=== PATIENT | female | born 1980 | race Caucasian/White ===

== ENCOUNTER 2018-03-18 18:13 | Emergency (ER) | payer OTHER ==
[2018-03-18 18:13] VITALS: BMI 20.9
[2018-03-18 18:22] VITALS: RESP 18; O2SAT 99
--- NOTE | 2018-03-18 18:50 | ED PDOC ---
HPI: Female Pain Time Seen by Provider: 03/18/18 18:23 Chief Complaint (Nursing): Female Genitourinary Chief Complaint (Provider): Female genitourinary History Per: Patient Onset/Duration Of Symptoms: Days (x2) Current Symptoms Are (Timing): Still Present Associated Symptoms: denies: Fever, Chills, Nausea, Vomiting, Diarrhea Additional Complaint(s): 37 year old female presents to the ED for evaluation of suprapubic pressure, dysuria, and urinary frequency for 2 days. Patient has a history of UTI with similar symptoms in the past. No medications taken [employer]. Reports intermittent lower back pain as well. Denies fever, chills, flank pain, nausea, vomiting, or diarrhea. LMP is current. 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 - Family History Family History: States: Unknown Family Hx - Living Arrangements Living Arrangements: With Family - Home Medications Home Medications: Ambulatory Orders Medication Instructions Recorded Docusate Sodium [Colace] 100 mg PO DAILY 10/15/14 Albuterol 0.042% [Albuterol 0.042% 3 ml IH Q4 PRN #20 milagros 08/30/15 Inhal Milagros (1.25mg/3ml) UD] Albuterol HFA [Ventolin HFA 90 1 - 2 puff IH Q4 PRN #1 inhaler 08/30/15 mcg/actuation (8 g)] Azithromycin [Zithromax] 250 mg PO DAILY #6 tab 08/30/15 Ibuprofen 600 mg PO Q6 PRN #20 tablet 08/30/15 Prednisone 50 mg PO DAILY #4 tab 08/30/15 Naproxen 500 mg PO BID PRN #20 tab 03/18/18 Nitrofurantoin Macrocrystals 100 mg PO BID #14 cap 03/18/18 [Macrobid] Phenazopyridine HCl [Pyridium] 200 mg PO BID PRN #4 tablet 03/18/18 - Allergies Allergies/Adverse Reactions: Allergies Allergy/AdvReac Type Severity Reaction Status Date / Time No Known Allergies Allergy Verified 07/14/14 02:26 Review of Systems ROS Statement: Except As Marked, All Systems Reviewed And Found Negative Constitutional: Negative for: Fever, Chills Gastrointestinal: Positive for: Other (Suprapubic pressure). Negative for: Nausea, Vomiting, Abdominal Pain (or flank pain), Diarrhea Genitourinary Female: Positive for: Dysuria, Frequency Physical Exam - Reviewed Nursing Documentation Reviewed: Yes Vital Signs Reviewed: Yes - Physical Exam Comments: GENERAL APPEARANCE: Patient is awake, alert, oriented x 3, in no acute distress. Resting comfortably. SKIN: Warm, dry; (-) cyanosis. ENMT: Mucous membranes moist. Airway patent: (-) stridor. NECK: Supple, FROM CHEST AND RESPIRATORY: (-) wheezing; (-) rales, (-) rhonchi, (-) rub; breath sounds equal bilaterally. Respirations even and nonlabored. HEART AND CARDIOVASCULAR: (-) irregularity ABDOMEN AND GI: Soft; (+) mild suprapubic tenderness. (-) CVA tenderness (-) distention (-) guarding. EXTREMITIES: (-) deformity NEURO AND PSYCH: Mental status as above; (-) focal findings. Gait: Steady. Speech: clear. (-) focal findings - Laboratory Results Urine POC: Negative - ECG O2 Sat by Pulse Oximetry: 99 (RA) Pulse Ox Interpretation: Normal Medical Decision Making Medical Decision Making: Initial Impression: Dysuria and urinary frequency, probable UTI Initial Plan: -- test --Pyridium 200mg PO --Urine culture --Urinalysis 1945 U/A (+) UTI. Macrobid 100mg PO ordered. Upreg: (-) 1999 On re-evaluation, patient reports improvement of symptoms. On exam, patient remains AAOx3, in no acute distress. Lungs clear to auscultation, cardiac RRR, repeat neuro exam shows no focal findings. Vitals stable. Lab/Diagnostic results d/w the patient in great detail. Diagnosis of dysuria, UTI d/w the patient. Based on history, exam and diagnostic results, plan will be for outpatient follow up. Patient instructed to follow-up with pmd / referral provided / the clinic in 1- 2 days without fail. Advised to take medication as prescribed. Return to the emergency room at any time for any new or worsening symptoms. Patient states she fully agrees with and understands discharge instructions. States that she agrees with the plan and disposition. Verbalized and repeated discharge instructions and plan. I have given the patient opportunity to ask any additional questions. Scribe Attestation: Documented by Dar Cuello acting as a scribe for Rosa BERMAN. Provider Scribe Attestation: All medical record entries made by the Scribe were at my direction and personally dictated by me. I have reviewed the chart and agree that the record accurately reflects my personal performance of the history, physical exam, medical decision making, and the department course for this patient. I have also personally directed, reviewed, and agree with the discharge instructions and disposition. Disposition - Clinical Impression Clinical Impression: Urinary tract infection, Dysuria - Patient ED Disposition Is Patient to be Admitted: No Counseled Patient/Family Regarding: Studies Performed, Diagnosis, Need For Followup, Rx Given - Disposition Referrals: [facility] [Outside] Nathaniel Wheatley Jr., MD [Staff Provider] - Disposition: Routine/Home Disposition Time: 20:00 Condition: STABLE Additional Instructions: The emergency medical care you received today was directed at your acute symptoms. If you were prescribed any medication, please fill it and take as directed. It may take several days for your symptoms to resolve. Return to the Emergency Department if your symptoms worsen, do not improve, or if you have any other problems. Please contact your doctor in 2 days for re-evaluation and follow up / or call one of the physicians/clinics you have been referred to that are listed on the Patient Visit Information form that is included in your discharge packet. Bring any paperwork you were given at discharge with you along with any medications you are taking to your follow up visit. Our treatment cannot replace ongoing medical care by a primary care provider (PCP) outside of the emergency department. Prescriptions: Naproxen 500 mg PO BID PRN #20 tab PRN Reason: Pain, Moderate (4-7) Nitrofurantoin Macrocrystals [Macrobid] 100 mg PO BID #14 cap Phenazopyridine HCl [Pyridium] 200 mg PO BID PRN #4 tablet PRN Reason: urinary discomfort Instructions: Urinary Tract Infection, Adult (DC), Dysuria, Adult (DC) Forms: [facility] (Y[place]i) Print Language: SPANISH - POA Present On Arrival: None Results - Lab Results Lab Results: 03/18/18 19:00 Urine Color Yellow Urine Clarity Cloudy Urine pH 6.0 Ur Specific [place] 1.023 Urine Protein 30 Urine Glucose (UA) Neg Urine Ketones Negative Urine Blood Large Urine Nitrate Negative Urine Bilirubin Negative Urine Urobilinogen 0.2-1.0 Ur Leukocyte Esterase Mod Urine RBC (Auto) 33 H Urine Microscopic WBC 62 H Ur Squamous Epith Cells 8 H Urine Bacteria Rare
[2018-03-18 19:22] LABS: SQUAMOUS EPITHIAL 8 /hpf (0-5); URINE BACTERIA RARE (<OCC); URINE BILIRUBIN NEGATIVE (NEGATIVE); URINE BLOOD LARGE (NEGATIVE); URINE CLARITY CLOUDY (Clear); URINE COLOR YELLOW (YELLOW); URINE GLUCOSE (UA) NEG (Normal); URINE LEUKOCYTE ESTERASE MOD Leu/uL (Negative); URINE PROTEIN 30 mg/dL (NEGATIVE); URINE UROBILINOGEN 0.2-1.0 mg/dL (0.2-1.0)
[2018-03-18 20:30] VITALS: BP 122/78; PULSE 89; TEMP 98
== END 2018-03-18 20:28 | disposition home or self-care (01) ==
LOC: H.ER 18:13
DX: N39.0 Urinary tract infection, site not specified (principal); R30.0 Dysuria; J45.909 Unspecified asthma, uncomplicated

== ENCOUNTER 2018-04-04 15:03 | Emergency (ER) | payer OTHER ==
[2018-04-04 15:04] VITALS: BMI 20.9
[2018-04-04 15:46] VITALS: BP 108/66; PULSE 68; RESP 16; TEMP 98.2; O2SAT 100
--- NOTE | 2018-04-04 16:14 | ED PDOC ---
HPI: Female Pain Time Seen by Provider: 04/04/18 15:36 Chief Complaint (Nursing): Female Genitourinary Chief Complaint (Provider): Suprapubic Pressure + Urinary Frequency History Per: Patient History/Exam Limitations: no limitations Onset/Duration Of Symptoms: Days (x1) Current Symptoms Are (Timing): Still Present Additional Complaint(s): 37 year old female presents to the ED for evaluation of suprapubic pressure and urinary frequency since last night. Pt reports she was seen three weeks ago for a UTI and treated with macrobid; her urine culture showed sensitivity to macrobid and pt reported her sx fully improved then. Otherwise, denies nausea, vomiting, fever, back pain, vaginal discharge, and pain with sex. Admits to having ever only had one long-term current sexual partner. PMD: none provided Past Medical History Reviewed: Historical Data, Nursing Documentation, Vital Signs Vital Signs: Last Vital Signs Temp 98.2 F 04/04/18 15:44 Pulse 68 04/04/18 15:44 Resp 16 04/04/18 15:44 BP 108/66 04/04/18 15:44 Pulse Ox 100 04/04/18 15:44 - Medical History PMH: Asthma (as child/ teenager) Denies: Chronic Kidney Disease - Surgical History Surgical History: No Surg Hx - Family History Family History: States: Unknown Family Hx - Living Arrangements Living Arrangements: With Family - Home Medications Home Medications: Ambulatory Orders Medication Instructions Recorded Docusate Sodium [Colace] 100 mg PO DAILY 10/15/14 Albuterol 0.042% [Albuterol 0.042% 3 ml IH Q4 PRN #20 milagros 08/30/15 Inhal Milagros (1.25mg/3ml) UD] RX: Albuterol HFA [Ventolin HFA 90 1 - 2 puff IH Q4 PRN #1 inhaler 08/30/15 mcg/actuation (8 g)] RX: Azithromycin [Zithromax] 250 mg PO DAILY #6 tab 08/30/15 RX: Ibuprofen 600 mg PO Q6 PRN #20 tablet 08/30/15 RX: Prednisone 50 mg PO DAILY #4 tab 08/30/15 Nitrofurantoin Macrocrystals 100 mg PO BID #14 cap 03/18/18 [Macrobid] Phenazopyridine HCl [Pyridium] 200 mg PO BID PRN #4 tablet 03/18/18 RX: Naproxen 500 mg PO BID PRN #20 tab 03/18/18 Ciprofloxacin [Cipro] 500 mg PO BID #14 tab 04/04/18 - Allergies Allergies/Adverse Reactions: Allergies Allergy/AdvReac Type Severity Reaction Status Date / Time No Known Allergies Allergy Verified 04/04/18 15:44 Review of Systems ROS Statement: Except As Marked, All Systems Reviewed And Found Negative Constitutional: Negative for: Fever Gastrointestinal: Positive for: Abdominal Pain (suprapubic pressure). Negative for: Nausea, Vomiting Genitourinary Female: Positive for: Frequency. Negative for: Vaginal Discharge Musculoskeletal: Negative for: Back Pain Physical Exam - Reviewed Nursing Documentation Reviewed: Yes Vital Signs Reviewed: Yes - Physical Exam Appears: Positive for: No Acute Distress Head Exam: Positive for: ATRAUMATIC, NORMOCEPHALIC Skin: Positive for: Normal Color. Negative for: Rash Eye Exam: Positive for: Normal appearance Cardiovascular/Chest: Positive for: Regular Rate, Rhythm Respiratory: Positive for: Normal Breath Sounds. Negative for: Respiratory Distress Gastrointestinal/Abdominal: Positive for: Normal Exam, Soft. Negative for: Tenderness Back: Positive for: Normal Inspection. Negative for: L CVA Tenderness, R CVA Tenderness Neurologic/Psych: Positive for: Alert, Oriented (x3) - ECG O2 Sat by Pulse Oximetry: 100 (RA) Medical Decision Making Medical Decision Making: Time: 1558 Initial Impression: UTI Initial Plan: --U-preg --U-dip 1610 Positive leuks in dip so urine culture sent out. Pt to be treated with cipro 7 day course instead of 5 because of recent UTI diagnosis. Stable for d/c. Scribe Attestation: Documented by Ai Park, acting as a scribe for Edna Broussard PA-C Provider Scribe Attestation: All medical record entries made by the Brannon were at my direction and person ally dictated by me. I have reviewed the chart and agree that the record accurately reflects my personal performance of the history, physical exam, medical decision making, and the department course for this patient. I have also personally directed, reviewed, and agree with the discharge instructions and disposition. Disposition - Clinical Impression Clinical Impression: UTI (urinary tract infection) - Patient ED Disposition Is Patient to be Admitted: No Counseled Patient/Family Regarding: Studies Performed, Diagnosis, Need For Followup, Rx Given - Disposition Referrals: Jose Vogt MD [Medical Doctor] - Disposition: Routine/Home Disposition Time: 16:10 Condition: STABLE Prescriptions: Ciprofloxacin [Cipro] 500 mg PO BID #14 tab Instructions: Urinary Tract Infections in Adults Forms: [facility] (Yi)
== END 2018-04-04 16:41 | disposition home or self-care (01) ==
LOC: H.ER 15:03
DX: N39.0 Urinary tract infection, site not specified (principal)